=== PATIENT | female | born 1950 | race Caucasian/White ===

== ENCOUNTER 2019-12-12 06:55 | Outpatient (NON) | payer MEDICARE, BC, OTHER, SELFPAY ==
[2019-12-12 18:16] LABS: SARS-CoV-2 RNA PCR Negative
== END 2019-12-12 06:56 ==
PROVIDERS: Physician Assistant; PCP Family Medicine; Visit Provider Family Medicine
DX: Z20.828 Contact with and (suspected) exposure to other viral communicable diseases (principal); R52 Pain, unspecified; R53.83 Other fatigue
CPT/HCPCS: 87635; C9803; U0003

== ENCOUNTER 2020-06-13 09:46 | Outpatient (CLI) | payer MEDICARE, BC, OTHER, SELFPAY ==
--- NOTE | ~2020-06-13 | DEXA_ITS ---
Bone Density Report Name: Dottie Tiwari Age: 69 Sex: Female Ethnicity: White Date of : 1950 Indication: osteopenia; monitoring treatment; prior fracture; Referring Provider: Shavon Degroot Study: Bone densitometry was performed. Exam Date: June 13, 2020 Accession number: [id number] Bone Density: Region BMD T-score Z-score Classification AP Spine (L1-L4) 0.828 -2.0 0.1 Osteopenia Femoral Neck (Left) 0.555 -2.6 -0.9 Osteoporosis Total Hip (Left) 0.688 -2.1 -0.6 Osteopenia Total Hip Bilateral Avg 0.694 -2.0 -0.6 Osteopenia Femoral Neck (Right) 0.567 -2.5 -0.8 Osteoporosis Total Hip (Right) 0.699 -2.0 -0.5 Osteopenia World Health Organization criteria for BMD impression classify patients as: Normal (T-score at or above -1.0), Osteopenia (T-score between -1.0 and -2.5), or Osteoporosis (T-score at or below -2.5). 10-year Fracture Risk: FRAX not reported because: Some T-score for Spine Total or Hip Total or Femoral Neck at or below -2.5 Treated for osteoporosis Previous Exams: Region Exam Age BMD T-score BMD Change BMD Change Date g/cm2 vs Baseline vs Previous AP Spine(L1-L4) 06/13/2020 69 0.828 -2.0 -0.050(-5.7%)* -0.044(-5.1%)* 10/27/2016 66 0.872 -1.6 -0.006(-0.7%) -0.006(-0.7%) 04/12/2014 63 0.878 -1.5 Total Hip(Left) 06/13/2020 69 0.688 -2.1 -0.043(-5.9%)* -0.102(-12.9%) 10/27/2016 66 0.790 -1.2 0.059(8.0%)* 0.059(8.0%)* 04/12/2014 63 0.732 -1.7 Total Hip(Right) 06/13/2020 69 0.699 -2.0 -0.045(-6.0%)* -0.085(-10.9%) 10/27/2016 66 0.784 -1.3 0.040(5.4%)* 0.040(5.4%)* 04/12/2014 63 0.743 -1.6 *Denotes significance at 95% confidence level, LSC for AP Spine = 0.022 g/cm2, LSC for Total Hip = 0.027 g/cm2 Clinical Information Provided by Patient: Has had a low trauma fracture Is being treated for osteoporosis Has used the following medications: Fosamax (i.e. alendronate) Patient maximum height was 64 Menopause Age: 47 No regular weight bearing exercise Drinks caffeinated beverages Onset of menses at age 12 Number of children 0 Impression: The patient has established osteoporosis, based on the Left Femoral Neck T-score and the existence of a prior fracture. The patient has risk factors, including: previous fracture. The BMD for the AP Spine(L1-L4) decreased, changing by -5.1% since the last DXA exam. The BMD for the Total Hip(Left) decreased, changing by -12.9% since the last DXA exam. The BMD f
== END 2020-06-13 09:47 | disposition home or self-care (01) ==
PROVIDERS: PCP Family Medicine; Visit Provider Family Medicine
DX: Z78.0 Asymptomatic menopausal state (principal); M85.89 Other specified disorders of bone density and structure, multiple sites; M81.0 Age-related osteoporosis without current pathological fracture
CPT/HCPCS: 77080

== ENCOUNTER 2020-07-17 16:10 | Outpatient (CLI) | payer MEDICARE, BC, OTHER, SELFPAY ==
--- NOTE | ~2020-07-17 | CT_ITS ---
EXAMINATION:CT lung screening DATE: 07/17/2020 17:08 INDICATION: Personal history of tobacco dependence. Smoker who quit 6 years ago with 30 pack year his tory. TECHNIQUE: Computed tomography (CT) of the chest was performed without intravenous contrast. Automate d exposure control and iterative reconstruction technique were employed. The dose-length product (DLP ) was 64.51 mGy-cm. COMPARISON: CT abdomen and pelvis 05/27/2018 FINDINGS: There is mild scarring at the lung apices. There is mild scarring in paraspinal right lower lobe. There is minimal atelectasis on the left. There is a 3 mm groundglass opacity in right upper l obe. There is a 2 mm nodule in right upper lobe. There is a 4 mm nodule at left major fissure. No ple ural effusion. The heart size is normal. No pericardial effusion. There is moderate thoracic spondylo sis. IMPRESSION: 1. Lung-RADS category 2: Benign appearance or behavior. Continue annual screening with noncontrast lo w-dose chest CT in 12 months. Reviewed, dictated and finalized at location B. IMPRESSION: 1. Lung-RADS category 2: Benign appearance or behavior. Continue annual screeni ng with noncontrast low-dose chest CT in 12 months.
== END 2020-07-17 16:11 | disposition home or self-care (01) ==
PROVIDERS: PCP Family Medicine; Visit Provider Family Medicine
DX: Z12.2 Encounter for screening for malignant neoplasm of respiratory organs (principal); Z87.891 Personal history of nicotine dependence
CPT/HCPCS: 71271

== ENCOUNTER → 2021-05-12 15:54 | Outpatient (CLI) | payer MEDICARE, BC, OTHER, SELFPAY ==
--- NOTE | ~2021-05-12 | XR_ITS ---
EXAMINATION: XR lumbar spine min 4V DATE: 05/12/2021 16:24 INDICATION: Low back pain TECHNIQUE: Anteroposterior, lateral, and bilateral oblique views of the lumbar spine, and cone-down l ateral view of the lumbosacral junction were obtained. COMPARISON: 04/28/2004 FINDINGS: Interval increase in now 13 degrees lumbar levoscoliosis measured between L2 and L5. 3 mm retrolisthe sis L5 on S1. Vertebral body heights are normal. Severe disc height loss at L1-L2 and moderate disc h eight loss at L2-L3. Mild disc height loss at L3-L4 and L4-L5. No pars interarticularis defects. Mild bilateral sacroiliac osteoarthritis. IMPRESSION: 1. Mild lumbar levoscoliosis with worsening spondylosis, severe at L1-L2 and otherwise mild to modera te . Reviewed, dictated and finalized at location A. GHT ENGINEER IMPRESSION: 1. Mild lumbar levoscoliosis with worsening spondylosis, severe at L1-L2 and ot herwise mild to moderate .
--- NOTE | ~2021-05-12 | XR_ITS ---
EXAMINATION: XR abdomen/kub 1V DATE: 05/12/2021 16:24 INDICATION: Lower abdominal pain. Fatigue TECHNIQUE: A supine view of the abdomen on 2 radiographs was obtained. COMPARISON: CT dated 05/27/2018 FINDINGS: Moderate amount of stool scattered throughout the colon. No dilated gas-filled loops of bowel to sugg est obstruction. Couple phleboliths in the right hemipelvis. Lung bases are clear. Heart size is norm al. Mild lumbar levoscoliosis. IMPRESSION: 1. Normal bowel gas pattern. Reviewed, dictated and finalized at location A. GER SERVICES
== END ==
PROVIDERS: PCP Nurse Practitioner Gerontology; Visit Provider Family Medicine
DX: R10.9 Unspecified abdominal pain (principal); R53.83 Other fatigue; M47.816 Spondylosis without myelopathy or radiculopathy, lumbar region; M41.86 Other forms of scoliosis, lumbar region
CPT/HCPCS: 72110; 74018

== ENCOUNTER → 2022-03-19 15:41 | Outpatient (CLI) | payer MEDICARE, BC, OTHER, SELFPAY ==
--- NOTE | ~2022-03-19 | CT_ITS ---
EXAMINATION: CT lung screening DATE: 03/19/2022 15:56 INDICATION: Personal history of nicotine dependence, prior smoker with 30 pack year history TECHNIQUE: Computed tomography (CT) of the chest was performed without intravenous contrast. The dose -length product (DLP) was 48.65 mGy-cm. Automated exposure control and iterative reconstruction techn Alitaliaue were employed. COMPARISON: 07/17/2020 FINDINGS: Again noted is a stable 3 mm groundglass nodule of the right upper lobe. Stable fissural no dules are noted. No pleural effusion or pneumothorax. The lungs are free of acute opacities. There is a small sliding hiatal hernia. No pathologically enlarged thoracic lymph nodes are identified. The h eart size is normal. There is moderate thoracic spondylosis. IMPRESSION: 1. Lung-RADS category 2: Benign appearance or behavior. Continue annual screening with noncontrast lo w-dose chest CT in 12 months. Reviewed, dictated and finalized at location B. ND ROASTER IMPRESSION: 1. Lung-RADS category 2: Benign appearance or behavior. Continue annual screeni ng with noncontrast low-dose chest CT in 12 months.
== END ==
PROVIDERS: PCP Family Medicine; Visit Provider Family Medicine
DX: F17.210 Nicotine dependence, cigarettes, uncomplicated (principal)
CPT/HCPCS: 71271

== ENCOUNTER 2023-01-21 13:27 | Outpatient (CLI) | payer MEDICARE, BC, OTHER, SELFPAY ==
--- NOTE | ~2023-01-21 | DEXA_ITS ---
Bone Density Report Name: BINA MCGRATH Age: 72 Sex: Female Ethnicity: White Date of : 1950 Indication: osteopenia;postmenopausal Referring Provider: KAITLIN KAMARA Study: Bone densitometry was performed. Exam Date: January 21, 2023 Accession number: [id number] Bone Density: Region BMD T-score Z-score Classification AP Spine(L1-L4) 0.865 -1.7 0.6 Osteopenia Femoral Neck (Left) 0.562 -2.6 -0.7 Osteoporosis Total Hip (Left) 0.666 -2.3 -0.6 Osteopenia Femoral Neck (Right) 0.590 -2.3 -0.4 Osteopenia Total Hip (Right) 0.686 -2.1 -0.5 Osteopenia Total Hip Mean 0.676 -2.2 -0.6 Osteopenia World Health Organization criteria for BMD impression classify patients as: Normal (T-score at or above -1.0), Osteopenia (T-score between -1.0 and -2.5), or Osteoporosis (T-score at or below -2.5). 10-year Fracture Risk: FRAX not reported because: Some T-score for Spine Total or Hip Total or Femoral Neck at or below -2.5 Previous Exams: Region Exam Age BMD T-score BMD Change BMD Change Date g/cm2 vs Baseline vs Previous AP Spine (L1-L4) 01/21/2023 72 0.865 -1.7 -0.013 (-1.5%) 0.037 (4.5%)* 06/13/2020 69 0.828 -2.0 -0.050 (-5.7%) -0.044 (-5.1%) 10/27/2016 66 0.872 -1.6 -0.006 (-0.7%) -0.006 (-0.7%) 04/12/2014 63 0.878 -1.5 Total Hip(Left) 01/21/2023 72 0.666 -2.3 -0.065 (-8.9%) -0.022 (-3.2%) 06/13/2020 69 0.688 -2.1 -0.043 (-5.9%) -0.102 (-12.9% 10/27/2016 66 0.790 -1.2 0.059 (8.0%)* 0.059 (8.0%)* 04/12/2014 63 0.732 -1.7 Total Hip(Right) 01/21/2023 72 0.686 -2.1 -0.057 (-7.7%) -0.012 (-1.8%) 06/13/2020 69 0.699 -2.0 -0.045 (-6.0%) -0.085 (-10.9% 10/27/2016 66 0.784 -1.3 0.040 (5.4%)* 0.040 (5.4%)* 04/12/2014 63 0.743 -1.6 *Denotes significance at 95% confidence level, LSC for AP Spine = 0.022 g/cm2, LSC for Total Hip = 0.027 g/cm2 Clinical Information Provided by Patient: Has used the following medications: Boniva (i.e. ibandronate), Vitamin D Patient maximum height was 64 Menopause Age: 47 No regular weight bearing exercise Drinks caffeinated beverages Onset of menses at age 15 Number of children 0 Impression: The patient has osteoporosis, based on the Left Femoral Neck T-score. No significant bone loss was observed. Discussion: INCREASED RISK OF FRACTURE. BONE DENSITY IS UNDESIRABLY LOW AT ONE OR MORE SKELETAL SITES, CONSISTENT WITH POSTMENOPAUSAL OSTEOP
== END 2023-01-21 13:28 | disposition home or self-care (01) ==
PROVIDERS: PCP Family Medicine; Visit Provider Family Medicine
DX: Z78.0 Asymptomatic menopausal state (principal); M85.89 Other specified disorders of bone density and structure, multiple sites; M81.0 Age-related osteoporosis without current pathological fracture
CPT/HCPCS: 77080

== ENCOUNTER 2023-04-13 09:58 | Outpatient (CLI) | payer MEDICARE, BC, OTHER, SELFPAY ==
--- NOTE | ~2023-04-13 | CT_ITS ---
EXAMINATION: CT lung screening DATE: 04/13/2023 10:15 INDICATION: Lung cancer screening. Prior smoker. TECHNIQUE: Computed tomography (CT) of the chest was performed without intravenous contrast. Addition al 3D reconstructions utilizing coronal maximum intensity projection (MIP) were performed. Automated exposure control and iterative reconstruction technique were employed. The dose-length product was 76 .27 mGy-cm. COMPARISON: None FINDINGS: No interval change in a couple 3 mm and 2 mm right upper lobe nodules. Also unchanged are a couple 4 mm lenticular likely intrafissural lymph node along the right and left major fissures. Unchanged mild discoid atelectasis/scarring at the lingula. No new or enlarging pulmonary nodules, pneumonia, pulmo nary edema or pleural effusion. Heart size is normal. No pericardial effusion. Thoracic aorta is norm al in caliber. No pathologically enlarged thoracic lymphadenopathy. Small sliding-type hiatal hernia. Mild to moderate thoracic spondylosis with severe spondylosis at the immediately adjacent lower cerv ical and upper lumbar spine. IMPRESSION: 1. Lung-RADS category 2: Benign appearance or behavior. Continue annual screening with noncontrast lo w-dose chest CT in 12 months. Reviewed, dictated and finalized at location A. HT READINESS TECHNICIAN IMPRESSION: 1. Lung-RADS category 2: Benign appearance or behavior. Continue annual screeni ng with noncontrast low-dose chest CT in 12 months.
== END 2023-04-13 09:59 | disposition home or self-care (01) ==
LOC: ANHIMG 10:00
PROVIDERS: PCP Family Medicine; Visit Provider Family Medicine
DX: Z12.2 Encounter for screening for malignant neoplasm of respiratory organs (principal); Z87.891 Personal history of nicotine dependence
CPT/HCPCS: 71271

== ENCOUNTER 2023-04-15 12:46 | Outpatient (CLI) | payer MEDICARE, BC, OTHER, SELFPAY | END 2023-04-15 12:47 | disposition home or self-care (01) | LOC: ANHAUDASC 12:46 | PROVIDERS: PCP Family Medicine; Visit Provider Physician Assistant | DX: H90.3 Sensorineural hearing loss, bilateral (principal) | CPT/HCPCS: 92557; 92567 ==

== ENCOUNTER 2023-08-09 10:00 | Outpatient (RCR) | payer BC, OTHER, SELFPAY | END 2023-08-09 10:29 | disposition other institution (70) | LOC: ANHAUDASC 10:00 | PROVIDERS: PCP Family Medicine; Visit Provider Family Medicine | DX: Z46.1 Encounter for fitting and adjustment of hearing aid (principal) | CPT/HCPCS: 99199; V5261 ==

== ENCOUNTER 2023-09-08 13:02 | Outpatient (CLI) | payer MEDICARE, BC, OTHER, SELFPAY ==
--- NOTE | ~2023-09-08 | CT_ITS ---
EXAMINATION: CT abdomen pelvis w con DATE: 09/08/2023 13:42 INDICATION: Left lower quadrant abdominal pain. TECHNIQUE: Computed tomography (CT) of the abdomen and pelvis was performed with 100 mL Omnipaque-350 intravenous contrast. Automated exposure control and iterative reconstruction technique were employe d. The dose-length product was 487.03 mGy-cm. COMPARISON: CT dated 05/27/2018 FINDINGS: Mild discoid atelectasis at the lingula. Heart size is normal. No pericardial or pleural effusion. Sm all sliding-type hiatal hernia. Subcentimeter cyst in the left hepatic lobe. Gallbladder, spleen, bronson creas, bilateral adrenal glands and right kidney are normal. 2 cm left renal cyst. Moderate to large amount stool scattered throughout the colon. Small bowel and appendix are normal. Bladder is normal. Uterus and bilateral adnexa are unremarkable. No free intraperitoneal gas or fluid. No pathologically enlarged abdominal or pelvic lymphadenopathy. Mild thoracolumbar levocurvature with severe spondylos is at the thoracolumbar junction mild to moderate spondylosis and more cephalad thoracic and lumbar s pine. IMPRESSION: 1. Moderate to large amount of colonic stool which could be seen with constipation. No acute intra-ab dominal/pelvic process. Reviewed, dictated and finalized at location B. IMPRESSION: 1. Moderate to large amount of colonic stool which could be seen with constipat ion. No acute intra-abdominal/pelvic process.
[2023-09-08 13:27] LABS: Estimated Glomerular Filt Rate > 60
== END 2023-09-08 13:03 | disposition home or self-care (01) ==
PROVIDERS: PCP Family Medicine; Visit Provider Physician Assistant
DX: R10.829 Rebound abdominal tenderness, unspecified site (principal); R10.32 Left lower quadrant pain
CPT/HCPCS: 74177; Q9967

== ENCOUNTER 2024-05-30 09:36 | Outpatient (CLI) | payer MEDICARE, BC, OTHER, SELFPAY ==
--- NOTE | ~2024-05-30 | CT_ITS ---
EXAMINATION: CT lung screening DATE: 05/30/2024 10:03 INDICATION: Z87.891 - Personal history of nicotine dependence TECHNIQUE: Computed tomography (CT) of the chest was performed without intravenous contrast. Addition al 3D reconstructions utilizing coronal maximum intensity projection (MIP) were performed. Automated exposure control and iterative reconstruction technique were employed. The dose-length product was 63 .13 mGy-cm. COMPARISON: 04/13/2023 FINDINGS: Unchanged 4 mm likely jorge a fissural lymph notes along the left and right minor fissures. Also unchang ed are a few 2-3 mm nodules in the bilateral upper lobes. There is a new 2 mm nodule in the right mid dle lobe on series 4, image 79. Unchanged mild lingular discoid atelectasis/scarring at the lingula. No pneumonia, pulmonary edema or pleural effusion. Heart size is normal. No pericardial effusion. Vas cular is normal in caliber. No pathologically enlarged thoracic lymphadenopathy. Mild to moderate tho racic and severe lower cervical and upper lumbar spondylosis. IMPRESSION: 1. Lung-RADS category 2: Benign appearance or behavior. Continue annual screening with noncontrast lo w-dose chest CT in 12 months. Reviewed, dictated and finalized at location B. IMPRESSION: 1. Lung-RADS category 2: Benign appearance or behavior. Continue annual screeni ng with noncontrast low-dose chest CT in 12 months.
--- OUTSIDE RECORDS SUMMARY | 2024-05-30 11:03 | XMS_ITS | Clinical Summary ---
Author Organization [facility] Address [address] [place] [address] Care Team Providers Care Pattern Assembler Name Role Phone Jyothi Silva MD Primary Care Provider Allergies Active Allergy Reactions Criticality Noted Date Comments Raloxifene Unknown 07/15/2018 Medications ALPRAZolam (XANAX) 0.5 mg tablet Take 1 tablet (0.5 mg total) by mouth as needed Active desloratadine (CLARINEX) 5 mg tablet Take 1 tablet (5 mg total) by mouth daily Active PARoxetine (PAXIL) 10 mg tablet Take 1 tablet (10 mg total) by mouth daily Active zolpidem (AMBIEN) 10 mg tabletIndicatio ns:Sleep-Onset Insomnia Take 1 tablet (10 mg total) by mouth nightly 3 8 Active bisacodyl EC (DULCOLAX EC) 5 mg EC tablet Take as stated in prep instructions. Can substitute for generic. Take two 5mg tabs at once. 2 tablet 9 Active celecoxib (CeleBREX) 100 mg capsuleIndicati ons:unknown dosage Take by mouth 2 (two) times a day Active alendronate (FOSAMAX) 70 mg tablet 3 9 Active magnesium citrate solution TK 296 ML PO ONCE FOR 1 DOSE STATED IN PREP INSTRUCTIONS 0 9 Active polyethylene glycol (MIRALAX) 17 gram/dose powder 0 9 Active traMADol (ULTRAM) 50 mg tablet TK 1 T PO TID PRN 0 9 Active spironolactone (ALDACTONE) 100 mg tablet Take 1 tablet (100 mg total) by mouth daily Active ergocalciferol (VITAMIN D) 50,000 unit capsule TK 1 C PO Q WK 1 9 Active cyclobenzaprine (FLEXERIL) 5 mg tabletIndicatio ns:Chronic bilateral low back pain without sciatica 1-2 QHS PRN 60 tablet 1 9 Active Additional Information Patient not taking.Reported on 02/22/2023 QUEtiapine (SEROquel) 25 mg tablet Take 1 tablet (25 mg total) by mouth nightly at bedtime 3 Active ibandronate (BONIVA) 150 mg tablet Take 1 tablet (150 mg total) by mouth every 30 (thirty) days Take in AM with glass of water prior to food, don't lie down for 30 minutes. Active azelastine-flut icasone 137-50 mcg/spray spray,non-aeros ol Administer into affected nostril(s) Active methylPREDNISol one (Medrol, Levi,) 4 mg Dosepack Take as directed on package 1 packet 4 Active Active Problems Problem Noted Date Diagnosed Date Pain of foot 11/03/2016 Surgical History Surgery Date Site/Laterality Comments TOE SURGERY EAR SURGERY TONSILECTOMY, ADENOIDECTOMY, BILATERAL MYRINGOTOMY AND TUBES FACET BLOCK LUMBAR SACRAL 1 LEVEL LEFT 10/18/2018 Bi lateral Medical History Medical History Date Comments Depression Anxiety Cataract Arthritis Osteoporosis Family History Medical History Relation Name Comments Asthma Brother Cancer Father Family history of malignant neoplasm - (Added by TW Conv) Arthritis Mother Family history of arthritis - (Added by TW Conv) Asthma Mother Spondylolisthesis Mother Relation Name Status Comments Brother Father Mother Social History Tobacco Use Types Packs/Day Years Used Date Smoking Tobacco: Never Smokeless Tobacco: Never Alcohol Use Standard Drinks/Week Comments Yes 0 (1 standard drink = 0.6 oz pur e alcohol) daily, a couple drinks Personal Safety Answer Date Recorded Getting School Help Needed Not on file 02/22 Comments No Sex and Gender Information Value Date Recorded Sex Assigned at Not on file 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 Gender Identity Not on file Sexual Orientation Not on file Obstetrics History Last Filed Vital Signs Vital Sign Reading Time Taken Comments Blood Pressure 123/78 11/10/2023 3:37 PM CDT Pulse 69 11/10/2023 3:37 PM CDT Temperature 36.3 C (97.3 F) 07/21/2018 3:02 PM CDT Respiratory Rate 15 07/21/2018 3:22 PM CDT Oxygen Saturation 100% 07/21/2018 3:22 PM CDT Inhaled Oxygen Concentration - - Weight 62.6 kg (138 lb) 11/10/2023 3:37 PM CDT Height 165.1 cm (5' 5 ) 11/10/2023 3:37 PM CDT Body Mass Index 22.96 11/10/2023 3:37 PM CDT Plan of Treatment Health Maintenance Due Date Last Done Comments Depression Screening 1950 Fall Risk Assessment 1950 Hepatitis C Screening 1950 Osteoporosis Screening-Bone Density Scan 1950 DTaP/Tdap/Td Vaccine (1 - Tdap) 1961 Hepatitis B Screening 1968 Pneumococcal vaccine 65+ (1 of 1 - PCV) 2000 Well Visit 65+ 07/08/2015 Zoster Vaccine (2 of 3) 09/01/2015 2015 Covid-19 Vaccine (6 2023-2 5 season) 2023 11/26/2021, 07/25/2021, 12/01/2020, Additional history exists Influenza Vaccine (#1) 2023 2, 02/25/2021, 12/26/2019, Additional history exists Breast Cancer Screening-Mammogram 07/15/2024 07/16/2023, 05/13/2022, 10/31/2018, Additional history exists Colon Cancer Screening-Colonoscopy 07/21/2028 07/21/2018 Colon Cancer Screening-CT Colonography Discontinued 07/21/2018 Colon Cancer Screening-DNA Stool Discontinued 07/22/19 19 Colon Cancer Screening-FIT Discontinued 07/21/2018 Colon Cancer Screening-Sigmoidoscopy Discontinued 07/21/2018 Procedures Procedure Name Priority Date/Time Associated Diagnosis Comments SCREENING MAMMOGRAM BILATERAL W LUTHER Schedule Routine, Read Routine (OP Routine) 07/16/2023 10:17 AM CDT Screening mammogram, encounter for COLONOSCOPY 07/21/2018 2:11 PM CDT from Last 3 Months or Most Recently Relevant to Health Maintenance Results * Screening Mammogram Bilateral W Luther (07/16/2023 10:17 AM CDT) Anatomical Region Laterality Modality Breast Bilateral Mammography Narrative 07/19/2023 12:00 PM CDT Mammogram Technique: Bilateral Digital Breast Tomosynthesis, Bilateral C-view 2D Screening mammogram. Views obtained: bilateral craniocaudal and bilateral mediolateral oblique. Computer Aided Detection was performed. Mammogram Findings: The present examination has been compared to prior imaging studies performed at [facility] on 10/30/2016, 10/31/2018 and 05/13/2022. The breasts are heterogeneously dense, which may obscure small masses. There is no suspicious abnormality in either breast. Impression: There is no mammographic evidence of malignancy. Annual screening mammography is recommended. OVERALL FINAL ASSESSMENT: BI-RADS CATEGORY 1: Negative. Procedure Note Yesenia Sherman MD - 07/19/2023 Mammogram Technique: Bilateral Digital Breast Tomosynthesis, Bilateral C-view 2D Screening mammogram. Views obtained: bilateral craniocaudal and bilateral mediolateral oblique. Computer Aided Detection was performed. Mammogram Findings: The present examination has been compared to prior imaging studies performed at [facility] on 10/30/2016, 10/31/2018 and 05/13/2022. The breasts are heterogeneously dense, which may obscure small masses. There is no suspicious abnormality in either breast. Impression: There is no mammographic evidence of malignancy. Annual screening mammography is recommended. OVERALL FINAL ASSESSMENT: BI-RADS CATEGORY 1: Negative. us Self Screening Mammogram IMG MAMMO PROCEDURES Fi nal Result * COLONOSCOPY (07/21/2018 2:11 PM CDT) Anatomical Region Laterality Modality Other Narrative Procedure Note Rylie Hendricks MD - 07/21/2018 2:11 PM CDT [facility] Patient Name: Dottie Tiwari Procedure Date: 07/21/2018 2:11 PM Date of : 1950 Admit Type: Outpatient Age: 68 Gender: Female Attending MD: Rylie Hendricks M.D. Room: [facility] ENDOSCOPY ROOM 3 Note Status: Finalized Procedure: Colonoscopy Indications: Positive Cologuard test Referring MD: Jasson Bynum MD Providers: Rylie Hendricks M.D. Medicines: Monitored Anesthesia Care Complications: No immediate complications. Estimated blood loss: Minimal. Estimated Blood Loss: Estimated blood loss was minimal. Procedure: Pre-Anesthesia Assessment: - Immediately prior to administration ofmedications, the patient was re-assessed for adequacy to receive sedatives. - The risks and benefits of the procedure and the sedation options and risks were discussed with the patient. All questions were answered and informed consent was obtained. The benefits, risks and alternatives of theprocedure and sedation were discussed and informed consent was obtained. All questions were answered. Please referto the signed informed consent document in the medical record. The scope was passed under direct vision.The CF [id number] endoscope was introduced throughthe anus and advanced to 5 cm into the ileum. The colonoscopy was performed without difficulty. The patient tolerated the procedure well. The quality of the bowel preparation was excellent. The bowel preparation used was Miralax. Bowel prep was administered using a split dose. Findings: The perianal and digital rectal examinations were normal. Four sessile, non-bleeding polyps were found in the recto-sigmoidcolon. The polyps were 2 mm in size. These polyps were removed with a jumbo cold forceps. Resection and retrieval were complete. The exam was otherwise without abnormality on direct and retroflexion views. Impression: - Four 2 mm, non-bleeding polyps at therecto-sigmoid colon, removed with a jumbo cold forceps. Resectedand retrieved. - The examination was otherwise normal on direct and retroflexion views. Recommendation: - Await pathology results. - A polyp or polyps were removed during your colonoscopy today. After the pathology result of the polyp(s) is reviewed, the doctor who performed your colonoscopy will recommend follow-up colonoscopy toyou based on current guidelines by gastroenterology societies: - If only small hyperplastic polyps from the rectumor sigmoid were removed, repeat the colonoscopy in 10 years. - If 1 or 2 polyps less than 1 cm in size areadenomas, repeat the colonoscopy in 5 years. - If 3 or more polyps are adenomas, repeat the colonoscopy in 3 years. - If there are 10 or more adenomas, repeat the colonoscopy in 1 year. - If any polyp is 10 mm or greater in size, hasvillous histology or high grade dysplasia, repeat the colonoscopy in 3 years. - If a polyp greater than 2 cm was removed with a piecemeal technique, repeat the colonoscopy in 6months to be certain that there is no residual polyp. - Sessile serrated polyps are treated like adenomasfor surveillance purposes. Electronically signed by Rylie Hendricks MD Rylie Hendricks M.D. 07/21/2018 3:12:26 PM . Number of Addenda: 0 Note Initiated On: 07/21/2018 2:11 PM Recognized by the [employer] for promoting quality in endoscopy us Ryile Hendricks MD ENDOSCOPY PROCEDURES Final Re sult from Last 3 Months or Most Recently Relevant to Health Maintenance Insurance MEDICARE [facility] Address: [facility] [address] [place] [address] ANTH ACCESS FOR LIFE FOR LIFE MEDICARE [facility] Advance Directives For more information, please contact: [phone] * Full Code (Latest Code Status on File) Date Activated Date Inactivated Comments 07/21/2018 1:34 PM 07/21/2018 8:22 PM Care Teams Pattern Assembler Relationship Specialty Start Date End Date Jyothi Silva MD [address] [facility] [address] [place] [address] [facility] - General 10/30/16
--- OUTSIDE RECORDS SUMMARY | 2024-05-30 11:03 | XMS_ITS | Referral Summary ---
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 The breasts [...] prior imaging studies performed at [facility] on 10/30/2016, 10/31/2018 and 05/13/2022. The breasts [...] Female Attending MD: Rylie Hendricks M.D. Room: [facility] ENDOSCOPY ROOM 3 Note Status: Finalized Procedure: [...] The scope was passed under direct vision.The [id number] endoscope was introduced throughthe anus and advanced [...] On: 07/21/2018 2:11 PM Recognized by the [place] [employer] for promoting quality in endoscopy Rylie Hendricks MD ENDOSCOPY PROCEDURES Final Re sult from Last 3 Months or Most Recently Relevant to Health Maintenance Insurance MEDICARE ANTH ACCESS [employer] FOR LIFE MEDICARE FOR LIFE [facility] FEDERAL Advance Directives For more information, please contact: [phone] * Full Code (Latest Code Status on File) Date Activated Date Inactivated Comments 07/21/2018 1:34 PM 07/21/2018 8:22 PM Care Teams Cost And Risk Analysis Manager Relationship Specialty Start Date End Date Jyothi Silva MD [address] [facility] [address] [place] [address] PCP - General 10/30/16
--- OUTSIDE RECORDS SUMMARY | 2024-05-30 11:03 | XMS_ITS | Continuity of Care Document ---
Author Organization [facility] Address [address] [place] [address] Phone Care Team Providers Care Sales Superintendent Name Role Phone Humberto Headley DO Unavailable Unavailable Advance Directives Directive Yes / No Effective Date File Name No Information Encounters Encounter Description Practice Location Reason(s) For Visit Diagnoses Date Provider Providers Copied on Encounter [facility], [address], [place], [place], [id number], tel:[phone] [facility] No Information Fang Parsons. [address] [place], [address], . tel: [phone] Family History Family Member Type Diagnosis Age [...]
== END 2024-05-30 09:37 | disposition home or self-care (01) ==
PROVIDERS: PCP Family Medicine; Visit Provider Family Medicine
DX: Z12.2 Encounter for screening for malignant neoplasm of respiratory organs (principal); Z87.891 Personal history of nicotine dependence
CPT/HCPCS: 71271

== ENCOUNTER 2024-12-14 15:35 | Outpatient (CLI) | payer MEDICARE, BC, OTHER, SELFPAY ==
--- NOTE | ~2024-12-14 | XR_ITS ---
EXAMINATION: XR abdomen/kub 1V, 12/14/2024 15:50 CDT HISTORY: K59.00 - Constipation, unspecified COMPARISON: No comparisons available. Technique: 3 view. Findings: Moderate fecal content, no dilated bowel loops No free air. No abnormal calcifications No acute osseous abnormality. Impression: 1. No acute abnormality. Reviewed, dictated and finalized at location P. Impression: 1. No acute abnormality.
== END 2024-12-14 15:36 | disposition home or self-care (01) ==
PROVIDERS: PCP Student in an Organized Health Care Education/Training Program; Visit Provider Nurse Practitioner Family
DX: K59.00 Constipation, unspecified (principal)
CPT/HCPCS: 74018

== ENCOUNTER 2024-12-22 09:55 | Outpatient (CLI) | payer MEDICARE, BC, OTHER, SELFPAY ==
--- OUTSIDE RECORDS SUMMARY | 2003-04-09 03:00 | XMS_ITS | Continuity of Care Document ---
Author Organization [facility] Address [address] [place] [address] Phone Care Team Providers Care [employer] Instructor Name Role Phone Humberto Headley DO Unavailable Unavailable Advance Directives Directive Yes / No Effective Date File Name No Information Encounters Encounter Description Practice Location Reason(s) For Visit Diagnoses Date Provider Providers Copied on Encounter [facility], [address], [place], [place], [id number], tel:[phone] [facility] No Information Fang Parsons. [address] [place], [address], . tel: [phone] Family History Family Member Type Diagnosis Age At Onset No Information Payers Payer name Insurance type Covered libertarian ID Authoriza tion(s) No Information Social History Type Description Quantity Date Captured Comments Sex Female Smoking Status No Information Chief Complaint And Reason For Visit No Information Reason For Referral Reason For Referral No Information History Of Present Illness Encounter Date Complaint History Of Prese nt Illness No Information Functional Status Date Functional Assessmen t No Information Instructions Date Instruction Additional Infor mation No Information Assessments Type Assessment Date No Information Patient Care Teams Name Effective Dates (start - stop) Status Members No Information
--- OUTSIDE RECORDS SUMMARY | 2024-12-22 10:27 | XMS_ITS | Clinical Summary ---
Author Organization [facility] Address [address] [place] [address] Care Team Providers Care Senior Accounting Associate Name Role Phone Jyothi Silva MD Primary [...] C PO Q WK 1 9 Active QUEtiapine (SEROquel) 25 mg tablet Take 1 [...] directed on package 1 packet 4 Active Additional Information Patient not taking.Reported on 08/30/2024 cyclobenzaprine (FLEXERIL) 5 mg tabletIndicatio ns:Chronic bilateral low back pain without sciatica Take 1 tablet (5 mg total) by mouth 2 (two) times a day as needed for muscle spasms 30 tablet 5 Active Active Problems Problem Noted Date Diagnosed [...] pur e alcohol) daily, a couple drinks AUDIT-C Answer Date Recorded Q1: How often do you have a drink containing alcohol? 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 Gender Identity Not on file Sexual Orientation Not on file Obstetrics History Para Term AB IAB SAB Ectopic Multiple Livin g Live Births 0 0 0 0 0 0 0 0 0 0 0 Last Filed Vital Signs Vital Sign Reading Time Taken Comments Blood Pressure 122/82 08/30/2024 11:10 AM CDT Pulse 86 08/30/2024 11:10 AM CDT Temperature 36.3 C (97.3 F) 07/21/2018 3:02 PM CDT Respiratory Rate 15 07/21/2018 3:22 PM CDT Oxygen Saturation 100% 07/21/2018 3:22 PM CDT Inhaled Oxygen Concentration - - Weight 61.2 kg (135 lb) 09/05/2024 11:13 AM CDT Height 165.1 cm (5' 5) 08/30/2024 11:10 AM CDT Body Mass Index 22.47 08/30/2024 11:10 AM CDT Plan of Treatment Health Maintenance Due Date Last Done Comments Depression Screening 1950 Fall Risk Assessment 1950 Hepatitis C Screening 1950 Osteoporosis Screening-Bone Density Scan 1950 DTaP/Tdap/Td Vaccine (1 - Tdap) 1961 Hepatitis B Screening 1968 Pneumococcal vaccine 65+ (1 of 1 - PCV) 2000 Well Visit 65+ 07/08/2015 Zoster Vaccine (2 of 3) 09/01/2015 2015 Covid-19 Vaccine (6 - 2024-2 6 season) 2024 11/26/2021, 07/25/2021, 12/01/2020, Additional history exists Influenza Vaccine (#1) 2024 2, 02/25/2021, 12/26/2019, Additional history exists Breast Cancer Screening-Mammogram 09/05/2025 09/05/2024, 07/16/2023, 05/13/2022, Additional history exists Colon Cancer Screening-Colonoscopy 07/21/2028 07/21/2018 Colon Cancer Screening-CT Colonography Discontinued 07/21/2018 Colon Cancer Screening-DNA Stool Discontinued 05/16/20 19 Colon Cancer Screening-FIT Discontinued 07/21/2018 Colon Cancer Screening-Sigmoidoscopy Discontinued 07/21/2018 Procedures Procedure Name Priority Date/Time Associated Diagnosis Comments SCREENING MAMMOGRAM BILATERAL W LUTHER Schedule Routine, Read Routine (OP Routine) 09/05/2024 11:18 AM CDT Screening mammogram, encounter for COLONOSCOPY 07/21/2018 2:11 PM CDT from Last 3 Months or Most Recently Relevant to Health Maintenance Results * Screening Mammogram Bilateral W Luther (09/05/2024 11:18 AM CDT) Anatomical Region Laterality Modality Breast Bilateral Mammography Impressions 09/07/2024 8:53 AM CDT Bilateral No evidence of malignancy in either breast. OVERALL BI-RADS FINAL ASSESSMENT: 1 - Negative RECOMMENDATION: Recommend bilateral annual screening mammography. Narrative 09/07/2024 8:53 AM CDT EXAMINATION: Screening Mammogram Bilateral W Luther: 09/05/2024 COMPARISON: Relevent prior studies available at the time of interpretation were reviewed, including the most recent mammogram on: 07/16/2023. TECHNIQUE: Mammography was performed with 2D and digital breast tomosynthesis (DBT) images. CAD was utilized. BREAST PARENCHYMAL COMPOSITION: The breasts are heterogeneously dense, which may obscure small masses. FINDINGS: Bilateral There is no suspicious mass, calcification, or architectural distortion in either breast. us Self Screening Mammogram IMG MAMMO PROCEDURES Fi nal Result * COLONOSCOPY (07/21/2018 2:11 PM CDT) Anatomical Region Laterality Modality Other Narrative Procedure Note Rylie Hendricks MD - 07/21/2018 2:11 PM CDT [facility] Patient Name: Dottie Tiwari Procedure Date: 07/21/2018 2:11 PM Date of : 1950 Admit Type: Outpatient Age: 68 Gender: Female Attending MD: Rylie Hendricks M.D. Room: [facility] ENDOSCOPY ROOM 3 Note Status: Finalized [...] The scope was passed under direct vision.The [id number] endoscope was introduced throughthe anus and advanced [...] On: 07/21/2018 2:11 PM Recognized by the [place] [employer] for promoting quality in endoscopy us Rylie Hendricks MD ENDOSCOPY PROCEDURES Final Re sult from Last 3 Months or Most Recently Relevant to Health Maintenance Insurance MEDICARE [facility] ACC[facility] FOR LIFE FOR LIFE MEDICARE [facility] FOR LIFE [facility] Advance Directives For more information, please contact: [phone] * Full Code (Latest Code Status on File) Date Activated Date Inactivated Comments 07/21/2018 1:34 PM 07/21/2018 8:22 PM Care Teams Senior Accounting Associate Relationship Specialty Start Date End Date Jyothi Silva MD [address] [place] [address] PCP - General 10/30/16
--- OUTSIDE RECORDS SUMMARY | 2024-12-22 10:28 | XMS_ITS | Patient Health Record ---
Author Organization [facility] Address [address] [place], [place] [id number] Care Team Providers Care Ward Assistant Name Role Phone JAIMEE JAMES Unavailable [phone] Jyothi Silva Unavailable Unavailable Reason For Referral No Information Medications Medication SIG (Take, Route, Frequency, Duration) Notes Start Date End Date Status meloxicam 15 MG Oral Tablet [Mobic] ORAL meloxicam 15 MG Oral Tablet [Mobic]Original Medicationmeloxicam 15 MG Oral Tablet [Mobic] *Reorder from [facility] for eRx and Interaction Alerts* 12/18/2015 Active zolpidem tartrate 10 MG Oral Tablet [Ambien] ORAL zolpidem tartrate 10 MG Oral Tablet [Ambien]Original Medicationzolpidem tartrate 10 MG Oral Tablet [Ambien] *Reorder from [facility] for eRx and Interaction Alerts* 12/24/2014 Active urea 200 MG/ML Topical Foam CUTANEOUS urea 200 MG/ML Topical FoamOriginal Medicationurea 200 MG/ML Topical Foam *Reorder from [facility] for eRx and Interaction Alerts* 12/24/2014 Active Plan Of Treatment No Information Insurance Providers Payer Name Payer Address Payer Phone Subscriber Number Group Number Insured Name Patient Relationship to Insured Coverage Start Date Coverage End Date Medicare Part B [place] [address] [place] [phone] [id number] BINA MCGRATH Self - patient is the insured [facility] ([facility]) ATTN CLAIMS [address] [place] [address] [id number] BINA MCGRATH Self - patient is the insured
== END 2024-12-22 09:56 | disposition home or self-care (01) ==
LOC: ANHAUDASC 09:55
PROVIDERS: PCP Family Medicine; Visit Provider Family Medicine
DX: H90.3 Sensorineural hearing loss, bilateral (principal); H74.8X1 Other specified disorders of right middle ear and mastoid; Z97.4 Presence of external hearing-aid
CPT/HCPCS: 92557; 92567

== ENCOUNTER 2025-01-22 09:29 | Outpatient (CLI) | payer MEDICARE, BC, OTHER, SELFPAY ==
--- NOTE | ~2025-01-22 | DEXA_ITS ---
Bone Density Report Name: BINA MCGRATH Age: 74 Sex: Female Ethnicity: White Date of : 1950 Indication: osteopenia; monitoring treatment; Referring Provider: MELODY HILL Study: Bone densitometry was performed. Exam Date: January 22, 2025 Accession number: [id number] Bone Density: Region BMD T-score Z-score Classification AP Spine(L1-L4) 0.804 -2.2 0.2 Osteopenia Femoral Neck (Left) 0.538 -2.8 -0.7 Osteoporosis Total Hip (Left) 0.631 -2.5 -0.8 Osteoporosis Femoral Neck (Right) 0.545 -2.7 -0.7 Osteoporosis Total Hip (Right) 0.638 -2.5 -0.7 Osteoporosis Total Hip Mean 0.634 -2.5 -0.8 Osteoporosis World Health Organization criteria for BMD impression classify patients as: Normal (T-score at or above -1.0), Osteopenia (T-score between -1.0 and -2.5), or Osteoporosis (T-score at or below -2.5). 10-year Fracture Risk: FRAX not reported because: Some T-score for Spine Total or Hip Total or Femoral Neck at or below -2.5 Treated for osteoporosis Previous Exams: -- Region Exam Age BMD T-score BMD Change BMD Change Date g/cm2 vs Baseline vs Previous -- AP Spine (L1-L4) 01/22/2025 74 0.804 -2.2 -2.9%* -2.9%* 06/13/2020 69 0.828 -2.0 Total Hip(Left) 01/22/2025 74 0.631 -2.5 -8.3%* -8.3%* 06/13/2020 69 0.688 -2.1 Total Hip(Right) 01/22/2025 74 0.638 -2.5 -8.7%* -8.7%* 06/13/2020 69 0.699 -2.0 -- *Denotes significance at 95% confidence level, LSC for AP Spine = 0.022 g/cm2, LSC for Total Hip = 0.027 g/cm2 Clinical Information Provided by Patient: Is being treated for osteoporosis Has used the following medications: Boniva (i.e. ibandronate), Fosamax (i.e. alendronate) Patient maximum height was 64 Menopause Age: 47 No regular weight bearing exercise Drinks caffeinated beverages Onset of menses at age 16 Number of children 0 Impression: The patient has osteoporosis, based on the Left Femoral Neck T-score. The BMD for the AP Spine (L1-L4) decreased, changing by -2.9% since the last DXA exam. The BMD for the Total Hip(Left) decreased, changing by -8.3% since the last DXA exam. The BMD for the Total Hip(Right) decreased, changing by -8.7% since the last DXA exam. Discussion: SIGNIFICANT BONE LOSS OBSERVED. Adherence to therapy (including calcium and vitamin D intake) should be assessed. If compliance is not a factor, review management and exclusion of secondary causes of bone loss. It is important to ask patients whether they are taking their medications and to encourage continued and appropriate compliance with their osteoporosis therapies to reduce fracture risk. It is also important to review their risk factors and encourage appropriate calcium and vitamin D intakes, exercise, fall prevention and other lifestyle measures. Follow-Up: Consider a repeat BMD and Vertebral Fracture Assessment (VFA) exam in 2 years or sooner if medically necessary, to reassess this patient's status. Reported by: KASSY on 01/22/2025 9:46:00 AM. Reviewed, dictated and finalized at location A.
== END 2025-01-22 09:30 | disposition home or self-care (01) ==
PROVIDERS: PCP Student in an Organized Health Care Education/Training Program; Visit Provider Student in an Organized Health Care Education/Training Program
DX: M81.0 Age-related osteoporosis without current pathological fracture (principal); M85.89 Other specified disorders of bone density and structure, multiple sites; Z78.0 Asymptomatic menopausal state
CPT/HCPCS: 77080